=== PATIENT | female | born 1990 | race Caucasian/White ===

== ENCOUNTER 2017-11-06 15:21 | Emergency (ER) | payer OTHER, SELFPAY ==
[2017-11-06 15:33] VITALS: BP 123/71; PULSE 85; RESP 15; TEMP 37.4; O2SAT 94; BMI 20.3
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
[2017-11-06 16:49] VITALS: BP 125/65; PULSE 75; RESP 16; O2SAT 99
[2017-11-06] MEDS: CYCLOBENZAPRINE 10 MG TABLET PO (16:50)
[2017-11-06] MEDS: MELOXICAM 7.5 MG TABLET PO (16:52)
== END 2017-11-06 17:13 | disposition home or self-care (01) ==
PROVIDERS: Emergency Provider Internal Medicine; PCP Physician Assistant
DX: S16.1XXA Strain of muscle, fascia and tendon at neck level, initial encounter (principal); S39.012A Strain of muscle, fascia and tendon of lower back, initial encounter; V49.9XXA Car occupant (driver) (passenger) injured in unspecified traffic accident, initial encounter
CPT/HCPCS: 81025; 99282; 99283